=== PATIENT | male | born 1980 | race Caucasian/White ===

== ENCOUNTER 2016-08-06 18:35 | Emergency (ER) ==
[2016-08-06 19:34] VITALS: BP 135/90
--- NOTE | 2016-08-06 20:07 | PROVIDER DOCUMENTATION ---
HPI-Respiratory General - General Source: patient - History of Present Illness-Resp Quality of Pain: reports: aching Severity in ED: reports: mild Onset/Duration: reports: other (10 days) Timing: reports: still present Cough Quality/Degree: reports: mild, dry cough Episode Frequency: no prior episodes Current Respiratory Medication Therapy: Initiated see nurses note Associated Symptoms: reports: cough, fever/chills Similar Symptoms Previously?: No Recently seen or treated by another doctor?: No <Anny Mir - Last Filed: 08/06/16 20:41> <Mary Spence - Last Filed: 08/06/16 21:03> - General Chief Complaint: Cold Symptoms Stated Complaint: COUGH Time Seen by Provider: 08/06/16 19:08 Allergies/Adverse Reactions: Patient Allergies Allergy/AdvReac Type Severity Reaction Status Date / Time No Known Allergies Allergy Verified 02/27/14 11:16 - History of Present Illness-Resp Nature of Presenting Problem: 35 year old M presents to the ED with a cc of cough, subjective fevers, and chest pain with coughing x10 days. Pt states significant other is being treated for a URI. (Anny Mir) Review of Systems - Adult - REVIEW OF SYSTEMS - ADULT Constitutional: reports: fever. denies: chills Eyes: reports: no symptoms reported Ears, Nose, Mouth & Throat: denies: ear pain, throat pain Cardiovascular: reports: chest pain (with coughing) Respiratory: reports: cough. denies: shortness of breath Gastrointestinal: denies: abdominal pain, nausea, vomiting Genitourinary: reports: no symptoms reported Musculoskeletal: reports: no symptoms reported Integumentary: reports: no symptoms reported Neurological: reports: no symptoms reported Psychiatric: reports: no symptoms reported Endocrine: reports: no symptoms reported Hematologic/Lymphatic: reports: no symptoms reported Allergic/Immunologic: reports: no symptoms reported All Other Systems: Reviewed and Negative <Anny Mir - Last Filed: 08/06/16 20:41> Past History - Adult - PAST MEDICAL HISTORY-ADULT Review of Records: reports: Nursing Assessment Review, Medications Reviewed Major Childhood Illnesses: reports: denies history - PRIOR SURGERIES/PROCEDURES Surgical/Procedure History: reports: none - IMMUNIZATION STATUS Childhood Immunizations: See Nurse Assessment Flu Vaccine: See Nurse Assessment - FAMILY HISTORY Family History: reviewed, not pertinent - SOCIAL HISTORY Smoking: non-smoker Substance Use: none/never Alcohol Use Frequency: never <Anny Mir - Last Filed: 08/06/16 20:41> Physical Exam-General - PHYSICAL EXAM-ADULT Initial Vital Signs Reviewed: Yes - CONSTITUTIONAL General Appearance: appears well, alert, no apparent distress - EYES Eyes: PERRL/EOMI, pink conjunctivae - HEAD, EARS, NOSE, MOUTH & THROAT HENMT: normocephalic/atraumatic, moist mucous membranes, normal ENT inspection, pharyngeal erythema (post-nasal drainage) - NECK Neck: non-tender, full range of motion, supple. negative: lymphadenopathy - RESPIRATORY Respiratory: lungs clear, normal breath sounds. negative: chest non-tender ( chest tender to lateral compression) - CARDIOVASCULAR Cardiovascular: regular rate, rhythm, no edema - GASTROINTESTINAL (ABDOMEN) Abdominal Exam: normal bowel sounds, non tender, soft - MUSCULOSKELETAL Back Exam: normal inspection, no CVA tenderness, no vertebral tenderness Extremity: non-tender, normal gait, normal inspection - SKIN Integumentary: normal color, normal turgor, warm/dry. negative: rash - NEUROLOGIC Neurologic: grossly normal, no motor/sensory deficits - PSYCHIATRIC Psych/Mental Status: normal thought content, normal thought process <ThiotMary M. - Last Filed: 08/06/16 21:03> Progress - XRAY 1 XRAY Study: Chest Impression: Normal XRAY Interpretation: negative: S. Thiot <Anny Mir - Last Filed: 08/06/16 20:41> <ThiotMary M. - Last Filed: 08/06/16 21:03> - PLAN OF CARE/RESULTS Progress/Plan/Lab Results: Vital Signs Temp Pulse Resp BP Pulse Ox 08/06/16 19:30 98.5 F 80 18 135/90 95 No Known Allergies Allergy (Verified 02/27/14 11:16) No Home Medications 08/06/16 Orders Category Date Time Status CHEST-2 VIEWS [RAD] Stat Exams 08/06/16 19:08 Taken (Thiot,Mary M.) Departure <Anny Mir - Last Filed: 08/06/16 20:41> - Departure Time of Disposition Order: 21:01 Certified Medical Emergency: Emergent <ThiotMary M. - Last Filed: 08/06/16 21:03> - Departure DIAGNOSIS: Costochondral pain Upper respiratory infection Qualifiers: URI type: unspecified URI Qualified Code(s): J06.9 - Acute upper respiratory infection, unspecified Disposition: HOME 01 Condition: Good Additional Instructions: ED Follow Up Instructions: You have been treated by a care provider in the Emergency Department. These instructions are being provided to you so you can have an understanding of how to care for yourself upon discharge. Upon discharge from the Emergency Department, you are responsible for making arrangements for follow-up care by a physician of your choice. Take all prescribed medications as directed. Return to the Emergency Department immediately for any new or worsening symptoms. You may call the Physician Referral phone number at [phone] to obtain a list of Physicians who are taking new patients. Prescriptions: Guaifenesin/Dextromethorphan [Guaifenesin Dm Syrup] 10 ml PO BID #120 ml Azithromycin [Zithromax Z-Tayo] 250 mg PO DIRECTED #1 pkg Referrals: None,PCP [Primary Care Provider] - Bill Robles MD [STAFF PHYSICIAN] - Attestation - Scribe Verification/Attestation Scribe:: Anny Mir Acting as Scribe for:: Mary Spence Scribe documention review:: This chart was documented by a scribe and accurately reflects the service the provider performed and the decisions made by the provider. <Anny Mir - Last Filed: 08/06/16 20:41> - Physician/ Mid-level Attestation Patient care was provided by Mid-level provider (SCIENTIFIC ADVISOR/PA):: Yes Mid-level provider:: Mary Spence Mid-level documentation review:: The Mid-level provider documentation, treatment plan and medical decision making was reviewed by the physician who agrees with all treatment and medical decision making by the [facility]. <Mary Spence - Last Filed: 08/06/16 21:03> Physician Attestation - Physician Attestation I, the provider, attest to the following statement:: Mary Spence Physician documentation Attestation:: This documentation recorded by the scribe accurately reflects the service I personally performed and the decisions made by me. <Anny Mir - Last Filed: 08/06/16 20:41>
[2016-08-06] MEDS ORDERED: ZITHROMAX PO ONE (21:03)
[2016-08-06] MEDS ORDERED: PREDNISONE PO ONE (21:03)
--- NOTE | 2016-08-07 09:19 | Diag Imaging Result Document ---
PROCEDURE NAME: CHEST-2 VIEWS - 08/06/2016 CHEST, TWO VIEWS: INDICATION: Cough for 1 week. COMPARISON: No comparison studies. FINDINGS: There is evidence of previous granulomatous infection. The cardiomediastinal silhouette is within normal limits. No infiltrates or effusions are identified. There is no pneumothorax. IMPRESSION: No acute cardiopulmonary abnormality is identified.
== END 2016-08-06 21:36 | disposition home or self-care (01) ==
LOC: P.ED 18:35
DX: J06.9 Acute upper respiratory infection, unspecified (principal); R07.1 Chest pain on breathing; R05 Cough; R50.9 Fever, unspecified; R07.89 Other chest pain
CPT/HCPCS: 71020; 99283; J7512